=== PATIENT | male | born 1985 | race Caucasian/White ===

== ENCOUNTER 2023-04-23 14:15 | Emergency (ER) | payer OTHER, SELFPAY ==
[2023-04-23 14:16] VITALS: BP 137/88; PULSE 98; RESP 18; TEMP 35.4; O2SAT 96; BMI 19.1
--- NOTE | 2023-04-23 14:44 | EX.ED.DYSGE1 ---
HPI History of Present Illness Chief Complaint: Fever Informant: patient and spouse/S.O. Narrative Narrative: 37-year-old male presenting to the emergency room with 6 days of fever. Patient states that several family members had influenza B. He developed a cough and a fever. He now notes some yellow sputum production and feels rattling in his chest. He notes some nasal congestion some mild nausea and vomiting generalized body aches. He has been using Tylenol. He has not really ate too much but has been trying to drink fluids but still feels dehydrated. He notes that he broke a right upper molar a couple weeks ago and wonders if he has an infection there. Patient notes that his smoking is drastically decreased since he has been now and today has been only able to have 1 cigarette. PFSH PFSH Home Medications albuterol sulfate 90 mcg/actuation aerosol inhaler (Ventolin HFA) 2 puff inhalation Q4H PRN PRN Wheezing ##1 04/23/23 [Rx Last Taken Unknown] Allergy/AdvReac Type Severity Reaction Status Date / Time No Known Allergies Allergy Verified 04/23/23 14:18 Family History Mother Lung cancer Father Heart disease Surgical History History of hernia surgery Social History household members: spouse and children housing: house Smoking Status: Current every day smoker tobacco type: cigarettes ROS ROS ED Constitutional Constitutional ED: Reports chills and fever(s); Denies weight loss Eyes Eyes: Denies change in vision or diplopia ENT ENT ED: Reports rhinorrhea; Denies ear pain or sore throat Cardiovascular Cardiovascular: Denies chest pain, orthopnea, palpitations or racing heartbeat Respiratory/Chest Respiratory/Chest: Reports cough and sputum; Denies dyspnea or orthopnea Gastrointestinal Gastrointestinal: Reports nausea and vomiting; Denies abdominal pain or diarrhea Genitourinary Genitourinary ED: Reports other Details: Decreased urination dark urine ; Denies dysuria, hematuria or urinary frequency Musculoskeletal Musculoskeletal: Reports myalgias; Denies arthralgias, back pain or neck pain Integumentary Denies abscess or rash Neurologic Neurologic: Denies headache(s) or weakness Psychiatric Psychiatric: Denies anxiety, depression, suicidal ideation or suicidal thoughts Endocrine Endocrinology: Denies polydipsia, polyphagia or polyuria Allergic/Immunologic Allergic/Immunologic ED: Denies mouth swelling, tongue swelling or urticaria EXAM Physical Exam Const Vital Signs: 04/23/23 14:16 04/23/23 14:32 04/23/23 15:18 Temperature 95.7 F L 98.2 F Temperature Source Temporal Temporal Pulse Rate 98 68 Respiratory Rate 18 21 H Respiratory Effort Normal Non-Labored Respiratory Pattern Normal Blood Pressure 137/88 H 133/83 H Blood Pressure Mean 104 99 Pulse Ox 96 97 Oxygen Delivery Method Room Air Room Air 04/23/23 16:33 Temperature 98.2 F Temperature Source Pulse Rate 65 Respiratory Rate 20 H Respiratory Effort Respiratory Pattern Blood Pressure 133/78 H Blood Pressure Mean 96 Pulse Ox 100 Oxygen Delivery Method Positive well nourished and well developed General Appearance ED: well developed HEENT Reports normocephalic, head/scalp atraumatic and moist mucous membranes HEENT Narrative: Right upper second molar shows evidence of dental decay. No significant tenderness or gum swelling noted. No facial swelling or erythema noted. Mild turbinate edema. Eyes PERRL and EOMs intact bilaterally Neck no lymphadenopathy, supple and no JVD Resp normal respiratory effort Resp Narrative: There is some slight rhonchi at the bases bilaterally Cardio regular rate, regular rhythm and no murmurs GI normal to inspection, nondistended, normoactive bowel sounds and non-tender Palpation: soft Back/Spine no CVA tenderness and normal ROM Extremity normal to inspection General Extremety ED: Negative for edema General Extremity: Negative for edema Neuro oriented x3 and CN's II-XII intact bilaterally Sensorium / Orientation: alert Motor Exam: strength 5/5 throughout Psych mental status grossly normal Mood & Affect: Negative for depressed or tearful Skin no rashes or lesions noted and no wounds MDM MDM MDM Narrative Medical decision making narrative: Oral temperature taken by this physician is 98.0. White count is 11.3 hemoglobin of 17 platelet count of 115. The hemoglobin is 17 may be due to a degree of hemoconcentration or due to his chronic smoking. Glucose of 115. Liver enzymes showed an AST of 42 otherwise negative. Sodium at 132. My independent interpretation of the single view chest x-ray is no obvious infiltrate. Patient received a dose of Toradol Zofran and IV fluids. He feels improved on repeat examination. He continues to remain afebrile. I suspect that since he is on day 6 he is on the tail end of his influenza. Cough however may linger especially in light of his smoking a pack and 1/2/day. His albuterol inhaler that he has had in the past is I will write him a new 1. Patient understands return instructions he is to continue to orally hydrate. He is comfortable with our plan. History & Record Review Discussion w/independent historian: Patient and Significant other Lab Data Labs: Laboratory Results - last 24 hr 04/23/23 14:35 WBC 11.3 H RBC 5.65 Hgb 17.0 H Hct 49.3 MCV 87.3 MCH 30.1 MCHC 34.5 RDW Std Deviation 41.1 RDW Coeff of Serina 13.0 Plt Count 115 L MPV 10.6 Immature Gran % (Auto) 0.400 Neut % (Auto) 76.0 H Lymph % (Auto) 12.4 L [place] % (Auto) 8.6 Eos % (Auto) 2.2 Baso % (Auto) 0.4 Absolute Neuts (auto) 8.6 H Absolute Lymphs (auto) 1.40 Nucleated RBC % 0 Sodium 132 L Potassium 3.9 Chloride 101 Carbon Dioxide 23.0 Anion Gap 8 BUN 17 Creatinine 0.91 Estim Creat Clear Calc 98.49 Est GFR (MDRD) Af Amer 121 Est GFR (MDRD) Non-Af 100 BUN/Creatinine Ratio 18.7 Glucose 115 H Calcium 8.4 L Total Bilirubin 0.50 AST 42 H ALT 29 Alkaline Phosphatase 64 Total Protein 7.2 Albumin 3.8 Globulin 3.4 Albumin/Globulin Ratio 1.1 Radiography Diagnostic Testing: Clinical Impression(s) from Imaging Studies Chest X-Ray 04/23/23 14:58 IMPRESSION: Normal x-ray examination of the chest. Electronically Signed: Jared Mora MD at 15:13 EDT , Discharge Plan Triage Chief Complaint: Fever ED Provider: Higinio Bailey Dx/Rx/DC Orders Clinical Impression: Influenza B, Cough Instructions: ED Influenza (Adult) Prescriptions: New albuterol sulfate [Ventolin HFA] 90 mcg/actuation HFA aerosol inhaler 2 puff inhalation Q4H PRN PRN (Reason: Wheezing) Qty: 1 0RF Primary Care Provider: Care Physician,No Primary Referrals: Care Physician,No Primary [Primary Care Provider] - Disposition Disposition: Home, Self Care Discharge Date/Time: 04/23/23 16:48
[2023-04-23] MEDS: Ondansetron 4 MG/2 ML Vial IV (14:53)
[2023-04-23] MEDS: Ketorolac 30 MG/ML Syringe IV (14:53)
[2023-04-23] MEDS: 0.9% Normal Saline (1000mL) 1,000 ML 1000 ML IV (14:53)
--- NOTE | 2023-04-23 14:58 | RAD_ITS ---
STUDY: X-RAY CHEST REASON FOR EXAM: Male, 37 years old. Cough TECHNIQUE: Single AP portable view of the chest. COMPARISON: None. FINDINGS: The lungs are clear and expanded. There is no demonstrated pleural abnormality. Normal size heart. Normal mediastinum and kristyn. Normal visualized pulmonary arteries. Normal visualized aortic arch and descending thoracic aorta. Normal visualized thoracic spine. Normal visualized ribs, clavicles, and shoulders. There is no demonstrated abnormality of the visualized soft tissue structures of the upper abdomen. RAD/Chest 1 View (Portable) IMPRESSION: Normal x-ray examination of the chest. Electronically Signed: Jared Mora MD at 15:13 EDT ,
[2023-04-23 15:15] LABS: Absolute Neutrophil Count 8.6 X10^3/uL (2.0-7.7); Basophil# 0.04 X10^3/uL; Basophil% 0.4 % (0-1); Eosinophil# 0.25 X10^3/uL; Eosinophils% 2.2 % (0-5); Hematocrit 49.3 % (40-54); Lymphocyte % 12.4 % (19-41); Mean Corp Hgb Conc 34.5 g/dL (32-36); Mean Corpuscular Hgb 30.1 pg (27.0-32.0); Mean Corpuscular Volume 87.3 fL (80-94); Mean Platelet Vol. 10.6 fl (6.2-12.0); Monocyte# 0.97 X10^3/uL; Monocyte% 8.6 % (0-10); NRBC Flagged by Analyzer 0 % (0-5); Neutrophil # 8.58 X10^3/uL (2.7-7.7); Platelet Count 115 K/mm3 (150-450); RBC Distribution Width SD 41.1 fl (35.1-43.9); Red Blood Count 5.65 M/mm3 (4.6-6.2); White Blood Count 11.3 K/mm3 (4.4-11.0)
[2023-04-23 15:18] VITALS: BP 133/83; PULSE 68; RESP 21; TEMP 36.8; O2SAT 97
[2023-04-23 15:25] LABS: ALB/GLOB Ratio 1.1 RATIO (0.9-2.4); AST(SGOT) 42 U/L (15-37); Alanine Aminotransfer ALT/SGPT 29 U/L (16-61); Albumin, Serum 3.8 g/dL (3.2-5.0); Alkaline Phosphatase 64 U/L (45-117); Anion Gap 8 (5-15); BUN 17 mg/dL (7-18); BUN/Creat Ratio 18.7 RATIO (10-20); Calcium,Total 8.4 mg/dL (8.5-10.1); Chloride 101 mmol/L (98-107); Creatinine, Serum 0.91 mg/dL (0.70-1.30); EST Glomerular Filtration Rate 100 mL/min (>60); Est Glom Filt Rate - Afr Amer 121 mL/min (>60); Estimated Creatinine Clearance 98.49 ml/min; Globulin 3.4 g/dL (2.2-4.2); Glucose 115 mg/dL (74-106); Potassium 3.9 mmol/L (3.5-5.1); Protein, Total 7.2 g/dL (6.4-8.2); Sodium Level 132 mmol/L (136-145)
[2023-04-23 16:33] VITALS: BP 133/78; PULSE 65; RESP 20; TEMP 36.8; O2SAT 100
== END 2023-04-23 16:48 | disposition home or self-care (01) ==
PROVIDERS: Emergency Provider Emergency Medicine; Visit Provider Emergency Medicine
DX: J10.1 Influenza due to other identified influenza virus with other respiratory manifestations (principal); F17.210 Nicotine dependence, cigarettes, uncomplicated; R05.9 Cough, unspecified
CPT/HCPCS: 71045; 80053; 85025; 87631; 96361; 96374; 96375; 99283; J7030; J2405

== ENCOUNTER 2023-05-02 23:55 | Emergency (ER) | payer OTHER, SELFPAY ==
[2023-05-02 23:56] VITALS: BP 138/78; PULSE 63; RESP 14; TEMP 36.6; O2SAT 98; BMI 18.9
--- NOTE | 2023-05-03 00:18 | EDS_ITS ---
HPI HPI - GI History of Present Illness Chief Complaint: Abd Pain Narrative Narrative: 37-year-old male past medical history of smoking, recently quit, states he was diagnosed with influenza approximately 10 days ago. Ever since then, over the last week, he has had mild nausea, and epigastric burning. While he has not been smoking, he describes intermittent pain in the epigastrium. No problems with continued fever or chills, no vomiting, no diarrhea. Last normal bowel movement was today. He had pain just prior to arrival that had him doubled over. He states that it is high pain and sometimes radiates downward. PFSH PFSH Home Medications omeprazole 20 mg capsule,delayed release 20 mg PO DAILY #30 CAPSULES 05/03/23 [Rx Last Taken Unknown] Allergy/AdvReac Type Severity Reaction Status Date / Time No Known Allergies Allergy Verified 05/03/23 00:00 Family History Mother Lung cancer Father Heart disease Surgical History History of hernia surgery Social History household members: spouse and children housing: house Smoking Status: Former smoker ROS ROS ED ROS Narrative Constitutional: No fever, no chills. HEENT: No sore throat. No neck pain. No loss of vision. No rhinorrhea. Cardiovascular: No chest pain. No palpitations. No pedal edema. Respiratory: No cough, no shortness of breath. Abdominal: Epigastric pain and burning/abdominal pain. Intermittent nausea. No vomiting. No problems with bowel movements, no diarrhea. Last normal bowel movement today. Genitourinary: No dysuria. No hematuria. Musculoskeletal: No myalgias. No arthralgias. Neurologic: No headaches. No dizziness. No lightheadedness. Skin: No rash. No change in color. Psychiatric: No depression. No anxiety. EXAM Physical Exam Narrative Exam Narrative: Afebrile. Vital signs noted. HEENT: Normocephalic. Atraumatic. PERRL, EOMI. Neck soft and supple. No point tenderness or step off. Cardiovascular: Regular rate and rhythm. No murmurs, rubs, or gallops appreciated. Respiratory: No tachypnea. Lungs clear to auscultation bilaterally. Gastrointestinal: Abdomen soft, nontender, with normoactive bowel sounds. No rebound or guarding. Neurological: Awake. Alert. Nonfocal, nonlateralizing. Skin: No rash. Normal color. No pallor. Musculoskeletal: No pedal edema. Full range of motion extremities. Const Vital Signs: 05/02/23 23:56 Temperature 97.8 F Temperature Source Temporal Pulse Rate 63 Respiratory Rate 14 Blood Pressure 138/78 H Blood Pressure Mean 98 Pulse Ox 98 Oxygen Delivery Method Room Air MDM MDM MDM Narrative Medical decision making narrative: In the differential diagnosis is gastritis with recent NSAID use versus peptic ulcer disease versus pancreatitis. I have low suspicion for colitis or bowel obstruction because the history and physical does not support this. He is having normal bowel movements. I do not feel CT imaging is indicated as he has a nonsurgical abdomen on clinical examination. Baseline laboratories will be obtained including CBC, CMP, and lipase. He was given a GI cocktail. I do feel that he will most likely require a prescription for PPI, and follow-up with gastroenterology. It was recommended that he continue his smoking cessation. I reviewed his laboratory work and he has normal white count of 11.0, hemoglobin normal at 14.7, platelet count elevated 452 which may be more of an acute phase reactant. Electrolyte panel is grossly unremarkable with a normal sodium of 141, potassium normal at 3.8. Glucose appropriately elevated at 135 with a normal anion gap of 7. Lipase is normal. I do not suspect pancreatitis. Once again I do not feel that CT imaging is indicated. Upon repeat examination he states he feels mildly improved. He was referred to a primary care provider and to gastroenterology to follow-up as needed. I wrote him a prescription for omeprazole to take daily for the next 30 days. I feel he can be discharged safely home with follow-up. Return instructions to the emergency department were reviewed. Disposition is discharged home in stable condition. History & Record Review Discussion w/independent historian: Patient Additional record(s) reviewed:: Prior ED visit Lab Data Attestation: I reviewed the patient's lab results. Labs: Laboratory Results - last 24 hr 05/03/23 00:35 WBC 11.0 RBC 4.92 Hgb 14.7 Hct 44.1 MCV 89.6 MCH 29.9 MCHC 33.3 RDW Std Deviation 41.5 RDW Coeff of Serina 12.6 Plt Count 452 H MPV 9.4 Immature Gran % (Auto) 1.300 H Neut % (Auto) 66.6 Lymph % (Auto) 22.4 [place] % (Auto) 8.2 Eos % (Auto) 1.0 Baso % (Auto) 0.5 Absolute Neuts (auto) 7.3 Absolute Lymphs (auto) 2.46 Nucleated RBC % 0 Sodium 141 Potassium 3.8 Chloride 107 Carbon Dioxide 27.0 Anion Gap 7 BUN 15 Creatinine 1.03 Estim Creat Clear Calc 86.51 Est GFR (MDRD) Af Amer 105 Est GFR (MDRD) Non-Af 87 BUN/Creatinine Ratio 14.6 Glucose 135 H Calcium 8.8 Total Bilirubin 0.40 AST 12 L ALT 20 Alkaline Phosphatase 62 Total Protein 6.8 Albumin 3.3 Globulin 3.5 Albumin/Globulin Ratio 0.9 Lipase 43 Discharge Plan Triage Chief Complaint: Abd Pain ED Provider: Kem Gonzalez Dx/Rx/DC Orders Clinical Impression: Gastritis, Abdominal pain, epigastric Instructions: ED Gastritis (Adult), ED Epigastric Pain Uncertain Cause Prescriptions: New omeprazole 20 mg capsule,delayed release(DR/EC) 20 mg PO DAILY Qty: 30 0RF Primary Care Provider: Care Physician,No Primary Referrals: Jimmy Morrell MD [Med Staff - Active Staff] - As Needed Friend,DO Yosvany [Med Staff - Active Staff] - As Needed Care Physician,No Primary [Primary Care Provider] - Activity Restrictions/Additional Instructions: Refrain from smoking. Medication as directed. Return with increased pain, nausea and vomiting, new or worsening symptoms. Disposition Disposition: Home, Self Care
[2023-05-03] MEDS: Mag Hydrox/Al Hydrox/Simeth 30 ML UDC PO (00:24)
[2023-05-03 00:42] LABS: Absolute Lymphocyte Count 2.46 X10^3/uL (0.83-4.51); Absolute Neutrophil Count 7.3 X10^3/uL (2.0-7.7); Basophil# 0.06 X10^3/uL; Basophil% 0.5 % (0-1); Eosinophil# 0.11 X10^3/uL; Hematocrit 44.1 % (40-54); Hemoglobin 14.7 g/dL (13.0-16.5); Lymphocyte # 2.46 X10^3/ul (0.83-4.51); Lymphocyte % 22.4 % (19-41); Mean Corp Hgb Conc 33.3 g/dL (32-36); Mean Corpuscular Hgb 29.9 pg (27.0-32.0); Mean Corpuscular Volume 89.6 fL (80-94); Mean Platelet Vol. 9.4 fl (6.2-12.0); Monocyte% 8.2 % (0-10); NRBC Flagged by Analyzer 0 % (0-5); Neutrophil # 7.31 X10^3/uL (2.7-7.7); Neutrophil % 66.6 % (47-70); Platelet Count 452 K/mm3 (150-450); RBC Distribution Width CV 12.6 % (11.6-14.6); RBC Distribution Width SD 41.5 fl (35.1-43.9); Red Blood Count 4.92 M/mm3 (4.6-6.2)
[2023-05-03] MEDS: 0.9% Normal Saline (1000mL) 1,000 ML 1000 ML IV (00:43)
[2023-05-03 00:58] LABS: ALB/GLOB Ratio 0.9 RATIO (0.9-2.4); AST(SGOT) 12 U/L (15-37); Alanine Aminotransfer ALT/SGPT 20 U/L (16-61); Albumin, Serum 3.3 g/dL (3.2-5.0); Alkaline Phosphatase 62 U/L (45-117); Anion Gap 7 (5-15); BUN 15 mg/dL (7-18); BUN/Creat Ratio 14.6 RATIO (10-20); Calcium,Total 8.8 mg/dL (8.5-10.1); Chloride 107 mmol/L (98-107); Creatinine, Serum 1.03 mg/dL (0.70-1.30); EST Glomerular Filtration Rate 87 mL/min (>60); Est Glom Filt Rate - Afr Amer 105 mL/min (>60); Estimated Creatinine Clearance 86.51 ml/min; Globulin 3.5 g/dL (2.2-4.2); Glucose 135 mg/dL (74-106); Lipase 43 U/L (13-75); Potassium 3.8 mmol/L (3.5-5.1); Protein, Total 6.8 g/dL (6.4-8.2); Sodium Level 141 mmol/L (136-145)
[2023-05-03 01:25] VITALS: BP 132/77; PULSE 71; RESP 16; TEMP 36.1; O2SAT 98
== END 2023-05-03 01:26 | disposition home or self-care (01) ==
PROVIDERS: Emergency Provider Emergency Medicine; Visit Provider Emergency Medicine
DX: R10.13 Epigastric pain (principal); K29.70 Gastritis, unspecified, without bleeding; Z87.891 Personal history of nicotine dependence
CPT/HCPCS: 80053; 83690; 85025; 96360; 99284; J7030; A4216